=== PATIENT | male | born 1980 | race Caucasian/White ===

== ENCOUNTER 2018-09-18 08:47 | Emergency (ER) | payer OTHER ==
[~2018-09-18] VITALS: Ht 175.3 cm; Wt 86.2 kg
[2018-09-18 08:50] VITALS: Ht 175.3 cm; Wt 86.2 kg
[2018-09-18 10:38] VITALS: BP 130/90
== END 2018-09-18 10:35 | disposition home or self-care (01) ==
LOC: ED 08:47
DX: S00.11XA Contusion of right eyelid and periocular area, initial encounter (principal); V00.131A Fall from skateboard, initial encounter; Y93.51 Activity, roller skating (inline) and skateboarding; Y92.89 Other specified places as the place of occurrence of the external cause; Y99.8 Other external cause status
CPT/HCPCS: 90715